=== PATIENT | male | born 1980 | race Caucasian/White ===

== ENCOUNTER 2017-09-23 17:24 | Emergency (ER) | payer MEDICAID ==
--- NOTE | 2017-09-23 17:43 | EDPHY ---
H & P Stated Complaint: ST Time Seen by Provider: 09/23/17 17:42 HPI/ROS: HPI: This is a 37-year-old male who presents with Chief Complaint: Sore throat Location: Throat Quality: Pain Duration: 2-3 days Signs and Symptoms: + fever, no nausea, no vomiting, no diarrhea, no urinary symptoms, no chest pain, no shortness of breath, no wheezing, no cough, no neck stiffness, no joint pain, + swollen glands, no ear pain, no rash Timing: Acute Severity: Moderate Context: Patient is an every day smoker, generally healthy, presents with sudden onset of severe throat pain that started Thursday approximately 2-3 days ago. He reports that is accompanied by low-grade fevers, chills, difficulty swallowing, fatigue and swollen glands. He noted some white spots on his left tonsil. He is unsure if he has had any exposure to strep throat. He is able to drink liquids but reports that it does hurt to swallow any food. He has been taking Tylenol [id number] with minimal relief. Modifying Factors: Tylenol, minimal relief Comment: ROS: see HPI Constitutional: + fever, no chills, no weight loss Eyes: No blurred vision Respiratory: No shortness of breath, no cough Cardiovascular: No chest pain, no palpitations Gastrointestinal: No nausea, no vomiting, no diarrhea, no hematemesis, no blood in stool Genitourinary: No dysuria, no blood in urine Extremities: No myalgias, no edema Neurologic: No weakness, no numbness Skin: No rashes, no petechiae Hematologic: No bruising, no bleeding MEDICAL/SURGICAL/SOCIAL HISTORY: Medical history: Generally healthy. Does not take any regular medications. Surgical history: Denies Social history: Current every day smoker. Family history noncontributory. CONSTITUTIONAL: Ill but nontoxic-appearing white male, awake and alert , no obvious distress HEENT: Atraumatic and normocephalic, PERRL, EOMI. Nares patent; no rhinorrhea; no nasal mucosal edema. Tympanic membranes clear. Oropharynx clear, tonsil left 2+ with moderate erythema and white exudate; tonsil right 1+ with mild erythema and no exudate; uvula is midline; no postpharyngeal edema; and moist pink mucosa. Airway patent. + moderate cervical anterior lymphadenopathy. No meningismus. Cardiovascular: Normal S1/S2, regular rate, regular rhythm, without murmur rub or gallop. PULMONARY/CHEST: Symmetrical and nontender. Clear to auscultation bilaterally. Good air movement. No accessory muscle usage. ABDOMEN: Soft, nondistended, nontender, no rebound, no guarding, no peritoneal signs, no masses or organomegaly. No CVAT. EXTREMITIES: 2/2 pulses, strength 5/5, no deformities, no clubbing, no cyanosis or edema. NEUROLOGICAL: no focal neuro deficits. GCS 15. SKIN: Warm and dry, no erythema. no rash. Good capillary refill. Source: Patient Exam Limitations: No limitations - Personal History Current Tetanus/Diphtheria Vaccine: Unsure Current Tetanus Diphtheria and Acellular Pertussis (TDAP): Unsure - Medical/Surgical History Hx Asthma: No Hx Chronic Respiratory Disease: No Hx Diabetes: No Hx Cardiac Disease: No Hx Renal Disease: No Hx Cirrhosis: No Hx Alcoholism: No Hx HIV/AIDS: No Hx Splenectomy or Spleen Trauma: No Other PMH: denies - Social History Smoking Status: Current every day smoker Constitutional: Initial Vital Signs Temperature (C) 37.5 C 09/23/17 17:28 Heart Rate 94 09/23/17 17:28 Respiratory Rate 16 09/23/17 17:28 Blood Pressure 129/90 H 09/23/17 17:28 O2 Sat (%) 96 09/23/17 17:28 O2 Delivery Mode Room Air Allergies/Adverse Reactions: No Known Allergies Allergy (Unverified 09/23/17 17:27) Home Medications: Medication Instructions Recorded Cefdinir [Omnicef (*)] 300 mg PO BID #20 cap 09/23/17 Medical Decision Making ED Course/Re-evaluation: Vital signs reviewed and stable upon arrival. Rapid strep test positive Modified center score equals 3; prophylactic antibiotics are recommended Given 1 L normal saline, IV Decadron 10 mg, IV morphine 2 mg,,IV Rocephin 2 grams No signs of airway compromise, tonsils abscess, respiratory distress, and meningitis Will discharge on Omnicef. Reassessed patient reports 50% improvement in symptoms and drinking fluids with minimal discomfort. Able to swallow ibuprofen without any difficulty. This patient was seen under the supervision of my secondary supervising physician. I evaluated care for this patient independently. Discussed this patient with Dr. Serrano. Differential Diagnosis: Differential diagnosis includes but is not limited to viral pharyngitis, strep pharyngitis, Trent's angina, tonsillar abscess, infectious mononucleosis. - Data Points Laboratory Results: 09/23/17 17:45 Group A Strep Screen POSITIVE H (NEGATIVE) Medications Given: Discontinued Medications Dexamethasone (Decadron Injection) 10 mg IVP EDNOW ONE Stop: 09/23/17 17:48 Last Admin: 09/23/17 18:13 Dose: 10 mg Sodium Chloride (Ns) 1,000 mls @ 0 mls/hr IV EDNOW ONE; Wide Open PRN Reason: Protocol Stop: 09/23/17 17:48 Last Admin: 09/23/17 18:09 Dose: 1,000 mls Ceftriaxone Sodium 2 gm/ (Sodium Chloride) 50 mls @ 100 mls/hr IV EDNOW ONE PRN Reason: Protocol Stop: 09/23/17 18:21 Last Admin: 09/23/17 18:13 Dose: 50 mls Morphine Sulfate (Morphine) 2 mg IVP EDNOW ONE Stop: 09/23/17 17:48 Last Admin: 09/23/17 18:23 Dose: 2 mg Departure - Departure Disposition: Home, Routine, Self-Care Clinical Impression: Streptococcal tonsillopharyngitis Condition: Good Instructions: Strep Throat (ED) Additional Instructions: Consume a minimum of 8-10 glasses of water or electrolyte fluid replacement drinks that include Gatorade, Powerade, Pedialyte. Eat a bland diet for the next 48 hours and then slowly advance as tolerated. Take Tylenol 650 mg every 4 hours and/or Ibuprofen 600 mg every 8 hours with food as needed for pain/fever. Take Omnicef twice a day times 10 days. Do not miss a dose. Take all medication until complete. Return to the ER immediately if you cannot swallow, have drooling, fevers, neck stiffness, cannot open your jaw, or any other symptoms that concern you. Referrals: [facility],. [Clinic] - As per Instructions Stand Alone Forms: Work Excuse Prescriptions: Cefdinir [Omnicef (*)] 300 mg PO BID #20 cap
[2017-09-23] MEDS ORDERED: DEXAMETHASONE 4 MG/ML VIAL IVP ONE (17:47)
[2017-09-23] MEDS ORDERED: NS 1,000 ML IV ONE (17:47)
[2017-09-23] MEDS ORDERED: cefTRIAXone 1 GM/DEXTROSE 1 GM/50 ML BAG IV ONE (18:12)
[2017-09-23 19:06] VITALS: BP 118/78
== END 2017-09-23 19:01 | disposition home or self-care (01) ==
DX: J03.00 Acute streptococcal tonsillitis, unspecified (principal); E86.9 Volume depletion, unspecified; F17.200 Nicotine dependence, unspecified, uncomplicated
CPT/HCPCS: 96365; J0696; J1100; J2270